=== PATIENT | female | born 1990 | race Asian ===

== ENCOUNTER 2017-12-22 08:41 | Outpatient (CLI) | payer OTHER ==
[2017-12-22 10:12] LABS: FREE T4 (FREE THYROXINE) 0.9 ng/dL (0.6-1.6); THYROID STIMULATING HORMONE 3.93 uIu/mL (0.34-4.82)
[2017-12-23 12:18] LABS: DEHYDROEPIANDROSTERONE SULFATE 117.2 ug/dL (84.8-378.0); ESTRADIOL 29.1 pg/mL (.); FOLLICLE STIMULATION HORMONE 8.2 mIU/mL (.); LUETENIZING HORMONE 8.5 mIU/mL (.)
== END 2017-12-22 19:30 | disposition home or self-care (01) ==
LOC: EDBD → SLB 08:41
PROVIDERS: ATTEND Specialist
DX: N92.6 Irregular menstruation, unspecified (principal)
CPT/HCPCS: 36415; 82627; 82670; 83001; 83002; 84439; 84443-TC; 84479

== ENCOUNTER 2019-09-02 11:06 | Outpatient (CLI) | payer OTHER | END 2019-09-02 21:10 | disposition home or self-care (01) | LOC: SMI 11:06 | PROVIDERS: ATTEND Surgery | DX: K82.8 Other specified diseases of gallbladder (principal); K85.90 Acute pancreatitis without necrosis or infection, unspecified | CPT/HCPCS: 74181 ==